=== PATIENT | female | born 1970 | race Two or more races ===

== ENCOUNTER 2025-02-16 13:54 | Emergency (ER) | payer OTHER, SELFPAY ==
[2025-02-16 14:06] VITALS: BP 105/70; PULSE 83; RESP 18; TEMP 36.1; O2SAT 97; BMI 21.7
--- NOTE | 2025-02-16 14:12 | ED.ALLEREA ---
HPI - Allergic Reaction General Time Seen by Provider: 14:12 Date Seen: 02/16/25 Chief complaint: Allergic Reaction Stated complaint: Allergic reaction Time Seen by Provider: 02/16/25 14:12 Source: patient and RN notes reviewed Mode of arrival: ambulatory Limitations: no limitations History of Present Illness HPI narrative: Patient is a very pleasant 54-year-old female previously healthy who comes to the emergency room for evaluation regarding a red rash that occurred after taking a pain pill from [place]. Patient notes that she is currently working at [employer]. She states that because of this and the repetitive motion she has been having some pain and possible swelling in her hands. A co-worker gave her this tablet which we have identified as diclofenac from [place]. Within 10 minutes she suddenly had the onset of a red rash on her face. This is now on her arms and her legs as well. It is very itchy. She has not noticed any swelling of her lips or throat. She is breathing without difficulty. She has not had any problems with ibuprofen in the past. She denies stomach pain or vomiting. She has no other allergies. No chest pain or shortness of breath. Related Data Previous Rx's ?Medication ?Instructions ?Recorded prednisone 20 mg tablet 20 mg PO BID #5 tabs 02/16/25 Allergies Allergy/AdvReac Type Severity Reaction Status Date / Time No Known Drug Allergies Allergy Verified 11/29/24 09:11 Review of Systems Status of ROS Reports: 10 or more systems reviewed and unremarkable except as noted in History and below Const Denies: fever or chills Eyes Denies: change in vision or blurry vision ENMT Denies: throat pain, neck pain or nasal congestion Cardio Denies: chest pain, swelling of feet/ankles, lightheadedness or shortness of breath with exertion Resp Denies: shortness of breath or cough GI Denies: abdominal pain, nausea or vomiting Musculo Reports: joint pain; Denies: back pain or neck pain Integ/Breast Reports: rash, itching and redness Neuro Denies: headache PFSH PFSH Social History Smoking Status: Unknown if ever smoked Do you use any of these nicotine containing products: None Second hand tobacco smoke exposure: No How often do you have a drink containing alcohol: monthly or less How often do you have six or more drinks on one occasion: Never AUDIT-C Alcohol total score: 1 Non-prescribed substance use: denies use service: No Exam Narrative: Exam Narrative: Alert and oriented. No acute distress. Erythema noted on the face the arms down to the knees. Warm to the touch. It is irregular and so I suspect this is hives but they are actually can fluent. Fortunately no swelling of the mucous membranes the lips the tongue and she has normal speech and voice. Neck is supple. Heart with regular rate and rhythm and lungs are clear. Abdomen soft. No lower extremity edema. Const: Vital Signs, click to edit/add: Vital Signs - 24 hr 02/16/25 14:06 02/16/25 14:21 02/16/25 15:00 Temperature 96.9 F L Pulse Rate [Pulse Oximeter] 83 66 Respiratory Rate 18 20 Blood Pressure [Ri ght Upper Arm] 105/70 129/76 Pulse Oximetry 97 98 99 Oxygen Delivery Me thod Room Air Room Air Documenting provider has reviewed patient's vital signs: yes Course Course ED Course: Patient had the onset of red rash and itching within 10 minutes of taking a medicine from [place] which the [employer] member was able to find out was diclofenac. Patient has not had allergic reactions to ibuprofen in the states. Fortunately no mucous membrane involvement at this time but I do worry with the spread of this rash about worsening symptoms and therefore have ordered IV medications as well as continued monitoring. She is at risk for worsening symptoms, respiratory compromise and therefore placed her on cardiac care nurse and oximetry. Have also ordered Benadryl 50 mg IV and dexamethasone 10 mg IV as well as 1 L of normal saline. Not feel the need for epinephrine at this time but will continue to monitor and if should she have respiratory symptoms swelling of the lips or tongue or change in her voice, she should should be considered for epinephrine dosing. Reevaluation(s) Reevaluation #1: Patient noted to have complete resolution of her symptoms. At the 2 hour stuart she really wants to go home. The hives and allergic reaction did not include her mucous membranes I feel it is safe to let her discharge. Reevaluation #2: air sampling and monitoring and oximetry continue to be within normal limits. Vital Signs Vital signs: Initial Vital Signs Temperature 96.9 F L 02/16/25 14:06 Temperature Source Temporal Artery Scan 02/16/25 14:06 Pulse Rate 83 10/17/25 14:06 Respiratory Rate 18 02/16/25 14:06 Blood Pressure 105/70 02/16/25 14:06 Blood Pressure Mean 81 02/16/25 14:06 Pulse Oximetry 97 02/16/25 14:06 Oxygen Delivery Method Room Air 02/16/25 14:06 Vital Signs Temperature 96.9 F L 02/16/25 14:06 Pulse Rate 83 02/16/25 14:06 Respiratory Rate 18 02/16/25 14:06 Blood Pressure 105/70 02/16/25 14:06 Pulse Oximetry 97 02/16/25 14:06 Oxygen Delivery Method Room Air 02/16/25 14:06 Temperature 96.9 F L 02/16/25 14:06 Pulse Rate 66 02/16/25 15:00 Respiratory Rate 20 02/16/25 15:00 Blood Pressure 129/76 02/16/25 15:00 Pulse Oximetry 99 02/16/25 15:00 Oxygen Delivery Method Room Air 02/16/25 15:00 Medications Administered Medications: Discontinued Medications Generic Name Dose Route Start Last Admin Trade Name Shayne PRN Reason Stop Dose Admin Dexamethasone 10 mg 02/16/25 14:21 02/16/25 14:36 Dexamethasone 4 Mg/Ml Vial IVP 02/16/25 14:22 10 mg ONCE ONE Administration Diphenhydramine HCl 50 mg 02/16/25 14:21 02/16/25 14:36 Diphenhydramine 50 Mg/Ml Inj IVP 02/16/25 14:22 50 mg ONCE ONE Administration Sodium Chloride 1,000 mls @ 1,000 mls/hr 02/16/25 14:21 02/16/25 14:35 0.9 % Sodium Chloride 1000 Ml IV 02/16/25 15:20 1,000 mls/hr .Q1H ANGIE Administration MDM - Allergic Reaction MDM Narrative Medical decision making narrative: 1. Allergic reaction-most likely to diclofenac from [place]. This may interact with other NSAIDs as his ibuprofen or Advil and I have let patient know she review should be very cautious taking those medications. She is unfortunately in a position where she has chronic hand pain from repetitive work at [employer]. At this time she has complete resolution of her symptoms. Vital signs remained stable. Patient received Benadryl 50 mg and dexamethasone 10 mg. Would like her to continue an antihistamine and she does want a work tomorrow so will use the 2nd generation antihistamine Zyrtec. 10 mg tonight before bed and then tomorrow morning. We will continue the prednisone 20 mg b.i.d. 1st dose tomorrow night. This was sent to her pharmacy. 2. Chronic hand pain-patient notes increased pain at night. She describes numbness and tingling and I suspect that she may have carpal tunnel bilaterally. Have referred her to Orthopedics for further evaluation. I have told her that because of the steroids she may have improvement of her pain over the next few days. 3. Disposition-home at this time. Return as needed for worsening symptoms. ECG Data Interpretation: air sampling and monitoring shows sinus rhythm with no arrhythmia. Discharge Plan Discharge Clinical Impression: Allergic reaction Patient Disposition: Home, Self-Care Condition: Improved Additional Instructions: You will need to take 2 medications over the next few days: 1st medication is an antihistamine. Because you want to work tomorrow I would recommend using Zyrtec 10 mg before bedtime tonight and tomorrow morning. Patient is a steroid. You received a steroid 3 year IV and this will last until tomorrow afternoon. Start taking prednisone tomorrow night and continue for 2 days. I would recommend against taking diclofenac in the future. This may also cross react with ibuprofen also known as Advil or Motrin and to should be very careful of taking that. Return to the ER for worsening symptoms especially for breathing difficulty or swelling of the lips or tongue. 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 The phone number is [phone]. Prescriptions: New prednisone 20 mg tablet 20 mg PO BID Qty: 5 0RF Follow Up/Referrals: Provider,Not a Local [Primary Care Provider, Family Practice] Stand Alone Forms: [facility] Info Instructions
[2025-02-16 14:21] VITALS: O2SAT 98
[2025-02-16 15:00] VITALS: BP 129/76; PULSE 66; RESP 20; O2SAT 99
[2025-02-16 16:25] VITALS: BP 129/76; PULSE 68; RESP 14; TEMP 36.8
== END 2025-02-16 16:26 | disposition home or self-care (01) ==
PROVIDERS: Emergency Provider Family Medicine
DX: L27.0 Generalized skin eruption due to drugs and medicaments taken internally (principal); T50.905A Adverse effect of unspecified drugs, medicaments and biological substances, initial encounter; M79.642 Pain in left hand; M79.641 Pain in right hand
CPT/HCPCS: 94761; 96361; 96374; 96375; 99284; J1100; J1200; J7030